=== PATIENT | male | born 1995 | race Caucasian/White ===

== ENCOUNTER 2017-05-03 03:09 | Emergency (ER) | payer OTHER ==
--- NOTE | ~2017-05-03 | ER ---
PATIENT'S NAME: [facility] AGE: 21 Y [address] ROOM: [place] [address] LOCATION: [facility] ADMIT DATE: 05/03/2017 ER/Outpatient Report DISCHARGE DATE: 05/03/2017 FAMILY PHYSICIAN: Brayden Singh MD ATTENDING PHYSICIAN: Rosalio Kaur Admission date and time documented on medical record. I saw the patient at 0320 hours. CHIEF COMPLAINT: Nausea, vomiting, diarrhea. HISTORY OF PRESENT ILLNESS: This patient is a 21-year-old male, who woke up from sleep about an hour prior to admission to the emergency room. [place] nauseated and subsequently vomited x1 and then had some intermittent dry heaving after that. He had 1 diarrhea stool. No blood in his vomitus or diarrhea. Has intermittent abdominal cramping along with this. No shortness of breath or chest pain. No lightheadedness, dizziness, syncope, or near syncope. No fall or trauma. No headache, eyes, ears, nose, throat, neck, or spine pain. No neuro changes. HOME MEDICATIONS: See attached medication list. ALLERGIES: PENICILLIN. SOCIAL HISTORY: Nonsmoker. Occasional intake of alcohol. SIGNIFICANT PAST MEDICAL HISTORY: Depression and anxiety. OPERATIONS: None. REVIEW OF SYSTEMS: All systems reviewed by me are negative with exception of those discussed in the history of present illness. PHYSICAL EXAMINATION: VITAL SIGNS: Temperature 96.8 tympanic, pulse 91 regular, respirations 16, blood pressure 121/76, O2 saturation on room air is 99%. HEAD: Normocephalic. EYES: Clear. PATIENT'S NAME: [facility] AGE: 21 Y [address] ROOM: [place] [address] LOCATION: [facility] ADMIT DATE: 05/03/2017 ER/Outpatient Report DISCHARGE DATE: 05/03/2017 FAMILY PHYSICIAN: Brayden Singh MD ATTENDING PHYSICIAN: Rosalio Kaur EARS: Clear TMs bilaterally. NOSE AND THROAT: Clear. Mucous membranes moist. NECK: No nuchal rigidity. No thyromegaly or cervical lymphadenopathy. No tenderness. SPINE: Negative. LUNGS: Clear. Good air flow. No rales, rhonchi, or wheezes. HEART: Regular. Pulses are palpable. No chest wall or ribcage pain to palpation. ABDOMEN: Soft, nondistended. Tender in the right mid upper quadrant of the abdomen. Bowel tones present. No organomegaly or abnormal mass palpable. No CVA tenderness. EXTREMITIES: Intact. Neurovascularly intact. SKIN: Clear. No skin eruptions or rash. IMPRESSION: Nausea, vomiting, diarrhea with abdominal cramping; etiology uncertain, most likely viral gastroenteritis. PLAN: The patient was given 1 L of normal saline IV in the emergency room. Zofran 8 mg IV in the emergency for nausea and vomiting. Bentyl 20 mg IM in the emergency room for abdominal pain. Discharged home. Observation. Activity as tolerated. Clear liquid diet for 24 hours and advance diet as tolerated. Bentyl 20 mg 4 times a day for 3 days #12. Zofran as needed for nausea and vomiting. Follow up with personal physician as needed. Discussion ensued with the patient concerning my findings and recommendations, he understands. MD BRENT LINDSAY/modl /[id number] d: 05/03/17618 t: 05/03/17 1809, OUTPATIENT REPORT
== END 2017-05-03 04:41 | disposition disaster alternative care site (69) ==
LOC: GMED 03:09
DX: R11.2 Nausea with vomiting, unspecified (principal); R19.7 Diarrhea, unspecified; R10.9 Unspecified abdominal pain; F41.9 Anxiety disorder, unspecified; F32.9 Major depressive disorder, single episode, unspecified; Z88.0 Allergy status to penicillin; Z88.1 Allergy status to other antibiotic agents; Z79.899 Other long term (current) drug therapy
CPT/HCPCS: J0500; J2405; J7030